=== PATIENT | female | born 1970 | race Caucasian/White ===

== ENCOUNTER 2022-05-04 08:31 | Observation (INO) ==
[2022-05-04 08:34] VITALS: BMI 31.3
--- NOTE | 2022-05-04 08:55 | ED.ABDFE ---
HPI Time Seen Time Seen by Provider: 05/04/22 08:53 PCP Primary Care Physician: BERNIE TATUM Complaint Chief Complaint:: PT. C/O ABDOMINAL PAIN, NAUSEA/VOMITING. ONSET THIS MORNING. Self Treatment fo Chief Complaint: CHEWABLE ROLAIDS COVID-19 Coronavirus risk:travel/contact w/high risk person: No Has patient experienced Coronavirus symptoms: No Source History Provided: Patient Mode of arrival Mode of Arrival: Ambulatory Timing Onset of Chief Complaint: 05/04/22 PMH PMH Past Medical History: No Past Surgical History: Yes Surgical History: Other Past Surgical History Comment: BREAST AUGMENTATION Family History History of Family Medical Conditions: No Social History Does patient currently use any type of tobacco product: No Have you used tobacco products in the last 12 months: No Type of Tobacco Use: None Does any household member use tobacco: No Alcohol Use: None Do you use any recreational Drugs:: No Lives With: Spouse Lives Where: Home Travel Risk Coronavirus risk:travel/contact w/high risk person: No Has patient experienced Coronavirus symptoms: No Infectious screening In the last 2 months have you had wt loss of >10#?: NO Have you had fever, night sweats or hemotysis?: No Have you traveled outside the country in the last 6 months?: No Isolation: Standard PE Vital Signs Vitals: Temperature 98.4 F Pulse Rate 63 Respiratory Rate 16 Blood Pressure 129/68 O2 Sat by Pulse Oximetry 98 COURSE Treatment Treatment: SEE ORDERS DONE WHILE PATIENT IS IN ER. Consultation Consultation Comments: CONSULT SURGEON CANDY PACKER. DR. PARK IN ER TO SEE PATIENT. HE WILL TAKE HER TO SURGERY TODAY. [facility] Labs Reviewed Laboratory Results Reviewed?: Yes Result Diagrams: 05/04/22 09:29 05/04/22 09:29 Laboratory: WBC 14.1 X10^3/uL (3.6-10.0) H 05/04/22 09:29 RBC 4.37 X10^6/uL (3.5-5.4) 05/04/22 09:29 Hgb 13.3 g/dL (12.0-16.0) 05/04/22 09:29 Hct 39.6 % (36.0-47.0) 05/04/22 09:29 MCV 90.6 fL (80.0-100.0) 05/04/22 09:29 MCH 30.5 pg (27.0-34.0) 05/04/22 09: MCHC 33.6 g/dL (33.0-35.0) 05/04/22 09: RDW 13.3 % (11.6-16.5) 05/04/22 09: Plt Count 297 X10^3/uL (150.0-450.0) 05/04/22 09: MPV 7.3 fL (7.4-11.0) L 05/04/22 09: Neut % (Auto) 87.3 % (42.0-75.0) H 05/04/22 09: Lymph % (Auto) 8.3 % (21.0-51.0) L 05/04/22: [place] % (Auto) 3.4 % (0.0-13.0) 05/04/22 09: Eos % (Auto) 0.6 % (0.9-2.9) L 05/04/22: Baso % (Auto) 0.4 % (0.2-1.0) 05/04/22 09: Neut # (Auto) 12.3 x10^3/uL (2.2-4.8) H 05/04/22: Lymph # (Auto) 1.2 X10^3/uL (1.3-2.9) L 05/04/22 09: Miller # (Auto) 0.5 x10^3/uL (0.3-0.8) 05/04/22 09: Eos # (Auto) 0.1 x10^3/uL (0.0-0.2) 05/04/22 09: Baso # (Auto) 0.1 X10^3/uL (0.0-0.1) 05/04/22 09: Absolute Nucleated RBC 0.0 /100WBC 05/04/22 09: Sodium 141 mmol/L (136-145) 05/04/22 09: Corrected Sodium TNP 05/04/22: Potassium 3.9 mmol/L (3.5-5.1) 05/04/22: Chloride 102 mmol/L (98-107) 05/04/22 09:29 Carbon Dioxide 32.0 mmol/L (21-32) 05/04/22 09:29 BUN 15 mg/dL (7-18) 05/04/22 09:29 Creatinine 1.03 mg/dL (0.55-1.02) H 05/04/22 09:29 Est GFR (MDRD) Af Amer > 60 (>60) 05/04/22 09:29 Est GFR (MDRD) Non-Af > 60 (>60) 05/04/22 09:29 Glucose 98 mg/dL (65-99) 05/04/22 09:29 Calcium 8.6 mg/dL (8.5-10.1) 05/04/22 09: Corrected Calcium TNP 05/04/22 09: Total Bilirubin 0.40 mg/dL (0.2-1.0) 05/04/22 09:29 AST 14 Units/L (15-37) L 05/04/22 09: ALT 18 Units/L (12-78) 05/04/22 09:29 Alkaline Phosphatase 85 Units/L (46-116) 05/04/22 09:29 Total Protein 7.4 g/dL (6.4-8.2) 05/04/22 09:29 Albumin 3.8 g/dL (3.4-5.0) 05/04/22 09:29 Globulin 3.6 g/dL (2.5-4.5) 05/04/22 09:29 Albumin/Globulin Ratio 1.1 Ratio (1.1-2.1) 05/04/22 09:29 Amylase 70 Units/L (25-115) 05/04/22 09:29 Lipase 91 Units/L (73-393) 05/04/22 09:29 Specimen Type Clean catch urine 05/04/22 10:20 Urine Color Yellow (YELLOW) 05/04/22 10:20 Urine Appearance Clear (CLEAR) 05/04/22 10:20 Urine pH 6.0 (5.0 - 8.0) 05/04/22 10:20 Ur Specific [place] 1.020 (1.000-1.030) 05/04/22 10:20 Urine Protein Negative (NEGATIVE) 05/04/22 10:20 Urine Glucose (UA) Negative (NEGATIVE) 05/04/22 10:20 Urine Ketones Negative (NEGATIVE) 05/04/22 10:20 Urine Blood 3+ (NEGATIVE) 05/04/22 10:20 Urine Nitrite Negative (NEGATIVE) 05/04/22 10:20 Urine Bilirubin Negative (NEGATIVE) 05/04/22 10:20 Urine Urobilinogen Normal (NORMAL) 05/04/22 10:20 Ur Leukocyte Esterase Negative (NEGATIVE) 05/04/22 10:20 Urine RBC 3-5 /HPF (0-3) A 05/04/22 10:20 Urine WBC None seen /HPF (0-5) 05/04/22 10:20 Ur Squamous Epith Cells Rare /HPF (NEGATIVE) 05/04/22 10:20 Amorphous Sediment Trace /HPF (NEGATIVE) 05/04/22 10:20 Urine Bacteria Negative /HPF (NEGATIVE) 05/04/22 10:20 Ur Culture Indicated? No/not indicated 05/04/22 10:20 EKG Rate: 73 [place]: Normal Rhythm: NSR Block: 1 Hypertrophy: None ST: Normal Opioid Opioid Risk Tool Age (Carlos box if 16-45): No History of Preadolescent Sexual Abuse: No Total: 0 Total Score Risk Category: Low Risk Copyright: Som CORNEJO predicting aberrant behaviors Discharge Plan Diagnosis Discharge Problem: Acute appendicitis, Abdominal pain Discharge Plan Patient Disposition: 01 HOME, SELF-CARE Condition: Stable Prescriptions: No Action diclofenac sodium 75 mg tablet,delayed release (DR/EC) 1 tab PO TID Health Concerns: Post Hospitalization: new medications and changes needed to prevent readmission or further decline. Pt educated and given instructions on all concerns. Plan of Treatment: Continue with present treatment and follow up plan. Pt is to keep follow up appointment as instructed and take medications as ordered. Follow ups/Referrals Follow ups/Referrals: MK ARAIZA [Primary Care Provider] - 3 days
[2022-05-04] MEDS ORDERED: NS 1,000 ML IV 1,000 ML ONE ×2 (09:10→15:25)
[2022-05-04] MEDS ORDERED: ZOFRAN INJ 4 MG VIAL IVP PRN ×2 (09:10→16:19)
[2022-05-04] MEDS ORDERED: NS 1,000 ML IV 1,000 ML IV ONE (09:10)
[2022-05-04] MEDS ORDERED: PEPCID 20 MG VIAL 20 MG in NS 50 ML IV 50 ML IV ONE (09:12)
[2022-05-04] MEDS ORDERED: ZOFRAN INJ 4 MG VIAL ONE ×2 (09:29→13:20)
[2022-05-04] MEDS ORDERED: NS 50 ML IV 50 ML IV ONE (09:29)
[2022-05-04] MEDS ORDERED: PEPCID 20 MG VIAL ONE ×2 (09:29→13:20)
[2022-05-04 09:47] LABS: BASOPHILS # (AUTO) 0.1 X10^3/uL (0.0-0.1); BASOPHILS % (AUTO) 0.4 % (0.2-1.0); EOSINOPHILS # (AUTO) 0.1 x10^3/uL (0.0-0.2); EOSINOPHILS % (AUTO) 0.6 % (0.9-2.9); HEMATOCRIT 39.6 % (36.0-47.0); HEMOGLOBIN 13.3 g/dL (12.0-16.0); LYMPHOCYTES # (AUTO) 1.2 X10^3/uL (1.3-2.9); LYMPHOCYTES % (AUTO) 8.3 % (21.0-51.0); MEAN CORPUSCULAR HEMOGLOBIN 30.5 pg (27.0-34.0); MEAN CORPUSCULAR HGB CONC 33.6 g/dL (33.0-35.0); MEAN CORPUSCULAR VOLUME 90.6 fL (80.0-100.0); MEAN PLATELET VOLUME 7.3 fL (7.4-11.0); MONOCYTES # (AUTO) 0.5 x10^3/uL (0.3-0.8); MONOCYTES % (AUTO) 3.4 % (0.0-13.0); NEUTROPHILS # (AUTO) 12.3 x10^3/uL (2.2-4.8); NEUTROPHILS % (AUTO) 87.3 % (42.0-75.0); RED BLOOD COUNT 4.37 X10^6/uL (3.5-5.4); RED CELL DISTRIBUTION WIDTH 13.3 % (11.6-16.5); WHITE BLOOD COUNT 14.1 X10^3/uL (3.6-10.0)
[2022-05-04 10:01] LABS: ALANINE AMINOTRANSFERASE 18 Units/L (12-78); ALBUMIN 3.8 g/dL (3.4-5.0); ALKALINE PHOSPHATASE 85 Units/L (46-116); AMYLASE 70 Units/L (25-115); ASPARTATE AMINO TRANSFERASE 14 Units/L (15-37); BLOOD UREA NITROGEN 15 mg/dL (7-18); CALCIUM 8.6 mg/dL (8.5-10.1); CHLORIDE 102 mmol/L (98-107); CREATININE 1.03 mg/dL (0.55-1.02); LIPASE 91 Units/L (73-393); SODIUM 141 mmol/L (136-145); TOTAL PROTEIN 7.4 g/dL (6.4-8.2); eGFR NON BLACK RACES > 60 (>60)
--- OUTSIDE RECORDS SUMMARY | 2022-05-04 10:33 | XMS | Continuity of Care Document ---
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 Pt has seen him and Case reviewed with [place] with Dr Davey and she is scheduled for excision tentatively 03-05-2021 at [facility].approx 8 mm rounded, raised, nevus the has appearance of a changing subaceous cyst or basal cell type lesion. She says it has been present 5 to 6 years but recently has increased in size and has at times draine d a clear serous liq uid. It has developed a lobulated appearance. No fever, chills, or weight loss, and no palpble regional lymph nodes. Status: Active Back pain (M54.9, 724.5) Comments: Pt wo zion like to be seen for back pain, neck pain, and right shoulder pain due to injury at work on 12/06/21. She was approved to be seen by workman's comp for a left arm injury. She reports that her left arm is not hurting or giving her any issues. She would like to wait and schedule a new visit once workman's comp approves her to be seen for back pain, neck pain, and right shoulder pain. We will attem pt to reach them and get approval and then schedule a new visit. Status: Active Basal cell carcinoma (BCC) of chest (C44.519, 173.51) Comments: RT side mandible . Status: Active Colicky RUQ abdominal pain (R10.11, 789.01) Comments: We will send for upper abd sonogram.Reports some crampy-type colic with discomfort in the right side and upper quadrant of the abdomen. Says she feels like she is distended like she has swallowed too much air. Status: Active Encounter for mammogram to establish baseline mammogram (Z12 .31, V76.12) Status: Active Hot flushes, perimenopausal (N95.1, 627.2) Comments: [facility]: add Clonidine 0.1 mg at HS for vasomotor sx's. Status: Active Low back pain with right-sided sciatica (M54.41, 724.3) Status: Active Low serum calcium (R79.89, 790.6) Status : Active Obesity with body mass index greater than 30 (E66.9, 278.00) Status: Active Right shoulder pain (M25.511, 719.41) Co mments: Reviewed x-rays with patient, no abnormalities noted.Due to continued pain, will refer to ortho for further evaluation and imagingReviewed plan of care with highway maintenance worker, Delano Calderon. Will tx with low dose Meloxicam. instruct ed on medication use and to avoid taking with other NSAIDS.These are old injuries that occurred on 12/06/20. Status: Active Skin lesion of face (L98.9, 709.9) Comme nts: basal cell carcinoma of skin face .R side, raised, scabbed Status: Active Work related injury (Y99.0, 959.9) Statu s: Active Medications Name Dates Details cloNIDine HCl 0.1 MG Oral Tablet 1 (one) Tablet Take one tab at HS for h ot flushes/vasomotor sx's for 30 days Quantity: 30 {Tablet} Refills: 0 Ordered:26-Nov-2020 Italia Low Start : 26-Nov-2020 End : 26-Dec-2020 Inactive Dicyclomine HCl 20 MG Oral Tablet 1 (one) Tablet TID before meals for stomach for 14 days Quantity: 40 {Tablet} Refills: 0 Ordered:20-Feb-2021 Shannon Fam NP Start : 20-Feb-2021 End : 06-Mar-2021 Inactive Diethylpropion HCl 25 MG Oral Tablet 1 (one) Tablet Take one tab daily before supper for 30 days Quantity: 30 {Tablet} Refills: 0 Ordered:26-Nov-2020 Italia Low Start : 26-Nov-2020 End : 26-Dec-2020 Inactive Meloxicam 7.5 MG Oral Tablet 1 (one) Tablet daily for 30 days Quantity: 30 {Tablet} Refills: 0 Ordered:06-Feb-2022 Arabella Yu NP Start : 06-Feb-2022 End : 08-Mar-2022 Inactive methylPREDNISolone 4 MG Oral Tablet Therapy Pack 1 (one) package use as directed per instructions in pack for 6 days Quantity: 1 {Packet} Refills: 0 Ordered:28-Jan-2022 Arabella Yu NP Start : 28-Jan-2022 End : 03-Feb-2022 Inactive Naproxen 500 MG Oral Tablet 1 (one) Tablet two times daily, as needed for 14 days Quantity: 28 {Tablet} Refills: 0 Ordered:28-Jan-2022 Zhanna Rolon Start : 28-Jan-2022 End : 11-Feb-2022 Inactive Comments:Medication taken as needed. Allergies and Adverse Reactions Name Dates Details No Known Drug Allergies (Allergy) Onset: 03-Dec-2020 Status : Active Procedures Procedure Dates Details EKG (80895) Date: 20-Feb-2021 Completed Comments: EKG out pt for c/o of upper abd pain and prior to surgery, please forward a copy of results to Dr Camacho ELECTROCARDIOGRAM, COMPLETE Date: 03-Dec-2020 Completed Nov-2020 (39231) Family History Unknown Family Member Name Dates Details Alcohol Abuse Status: Active Anemia Status: Active Cancer Comments: other Status: Active Completed Stroke Status: Active Heart disease in female family member before age 65 Status: Active Social History Name Dates Details Alcohol use: Moderate alcohol use. Drinks beer. Comments: 3-5 times/ month Status: Active Caffeine use: Tea. Comments: 5-6/day Status: Active Current tobacco use: Light tobacco smoke r. Smokes < 1 pack of cigarettes per day. Status: Active Exercise: Moderate. Comments: walking 5- 6 times per week Status: Active No drug use Status: Active Seat Belt Use: Never uses seat belts. St atus: Active Sun Exposure: Significant purposeful. St atus: Active Smoking Status Name Dates Details Smoker (finding) Vital Signs Date Test Result Details :55 Body temperature 98 f Comments: Metho d: Oral Heart Rate 80 /min Comments: Pattern: R egular Respiratory rate 20 /min Comments: Pattern: U nlabored O2 SAT 96 % Comments: Room air Systolic blood pressure 108 mm[Hg] Comments: Patien t Position: Sitting; Cuff Location: Left Arm; Cuff Size: Standard Diastolic blood pressure 72 mm[Hg] Comments: Patie nt Position: Sitting; Cuff Location: Left Arm; Cuff Size: Standard Weight 189.5 lb Body height 65 in Body mass index (BMI) [Ratio] 31.53 kg/m2 Body surface area Derived from formula 1.93 m2 :38 Body temperature 97.5 f Comments: Meth od: Oral Heart Rate 60 /min Comments: Pattern: R egular Respiratory rate 16 /min Comments: Pattern: U nlabored O2 SAT 95 % Comments: Room air Systolic blood pressure 113 mm[Hg] Comments: Patien t Position: Sitting; Cuff Location: Left Arm; Cuff Size: Standard Diastolic blood pressure 62 mm[Hg] Comments: Patie nt Position: Sitting; Cuff Location: Left Arm; Cuff Size: Standard Weight 190.375 lb Body height 65 in Body mass index (BMI) [Ratio] 31.68 kg/m2 Body surface area Derived from formula 1.94 m2 :40 Body temperature 98.3 f Comments: Meth od: Oral Heart Rate 72 /min Comments: Pattern: R egular Respiratory rate 20 /min Comments: Pattern: U nlabored O2 SAT 95 % Comments: Room air Systolic blood pressure 116 mm[Hg] Comments: Patien t Position: Sitting; Cuff Location: Left Arm; Cuff Size: Standard Diastolic blood pressure 78 mm[Hg] Comments: Patie nt Position: Sitting; Cuff Location: Left Arm; Cuff Size: Standard Weight 190.375 lb Body height 65 in Body mass index (BMI) [Ratio] 31.68 kg/m2 Body surface area Derived from formula 1.94 m2 :33 Body temperature 98 f Heart Rate 77 /min Comments: Pattern: R egular Respiratory rate 18 /min Comments: Pattern: U nlabored O2 SAT 96 % Comments: Room air Systolic blood pressure 110 mm[Hg] Comments: Patien t Position: Sitting; Cuff Location: Left Arm; Cuff Size: Standard Diastolic blood pressure 64 mm[Hg] Comments: Patie nt Position: Sitting; Cuff Location: Left Arm; Cuff Size: Standard Weight 192 lb Body height 65 in Body mass index (BMI) [Ratio] 31.95 kg/m2 Body surface area Derived from formula 1.94 m2 :53 Body temperature 97.6 f Comments: Meth od: Oral Heart Rate 78 /min Comments: Pattern: R egular Respiratory rate 18 /min Comments: Pattern: U nlabored O2 SAT 97 % Comments: Room air Systolic blood pressure 124 mm[Hg] Comments: Patien t Position: Sitting; Cuff Location: Left Arm; Cuff Size: Standard Diastolic blood pressure 79 mm[Hg] Comments: Patie nt Position: Sitting; Cuff Location: Left Arm; Cuff Size: Standard Weight 192 lb Body height 65 in Body mass index (BMI) [Ratio] 31.95 kg/m2 Body surface area Derived from formula 1.94 m2 :13 Body temperature 97.9 f Heart Rate 76 /min Comments: Pattern: R egular Respiratory rate 18 /min Comments: Pattern: U nlabored O2 SAT 98 % Comments: Room air Systolic blood pressure 102 mm[Hg] Comments: Patien t Position: Sitting; Cuff Location: Left Arm; Cuff Size: Standard Diastolic blood pressure 67 mm[Hg] Comments: Patie nt Position: Sitting; Cuff Location: Left Arm; Cuff Size: Standard Weight 192 lb Body height 65 in Body mass index (BMI) [Ratio] 31.95 kg/m2 Body surface area Derived from formula 1.94 m2 :52 Body temperature 98.2 f Comments: Metho d: Oral Heart Rate 82 /min Comments: Pattern: R egular Respiratory rate 18 /min Comments: Pattern: U nlabored O2 SAT 95 % Comments: Room air Systolic blood pressure 136 mm[Hg] Comments: Patien t Position: Sitting; Cuff Location: Left Arm; Cuff Size: Standard Diastolic blood pressure 83 mm[Hg] Comments: Patie nt Position: Sitting; Cuff Location: Left Arm; Cuff Size: Standard Weight 195 lb Body height 65 in Body mass index (BMI) [Ratio] 32.45 kg/m2 Body surface area Derived from formula 1.96 m2 :15 Body temperature 97.5 f Heart Rate 85 /min Comments: Pattern: R egular Respiratory rate 18 /min Comments: Pattern: U nlabored O2 SAT 99 % Comments: Room air Systolic blood pressure 114 mm[Hg] Comments: Patien t Position: Sitting; Cuff Location: Left Arm; Cuff Size: Standard Diastolic blood pressure 70 mm[Hg] Comments: Patie nt Position: Sitting; Cuff Location: Left Arm; Cuff Size: Standard Weight 195 lb Body height 65 in Body mass index (BMI) [Ratio] 32.45 kg/m2 Body surface area Derived from formula 1.96 m2 Results Date Description Value Details No Result Information Available Plan of Care Name Dates Details Instructions Follow up in 1 week Start: 29-Jan-2022 Instruction Type: Linda lundy Instructions for Treatment Indication: Right shoulder pain Low Back Pain Exercises *: back exercises Start: 29-Jan-2022 Instruction Type: Patient Education Indication: Low back pain with right-sided sciatica Follow up -Call or Make appt after diagn ostic tests to review results. for Upper Abd sonogram, EKG, MMG, and labs Start: 20-Feb-2021 Instruction Type: Provider Instructions for Treatment Indication: Colicky RUQ abdominal pain Breast Cancer: Early Detection: self-exam Start: Instruction Type: Patient Education Indication: Encounter for mammogram to establish baseline ma mmogram Breast Self-Exam *: gynecological health Start: 20-Feb-2021 Instruction Type: Patient Education Indication: Encounter for mammogram to establish baseline ma mmogram Mammogram *: breast Start: 20-Feb-2021 Instruction Type: P atient Education Indication: Encounter for mammogram to establish baseline ma mmogram [facility] *: mammogram Start: 21-Feb-20 Instruction Type: Patient Education Indication: Encounter for mammogram to establish baseline ma mmogram Gallstones *: gall bladder disease Start: 20-Feb-2021 Inst ruction Type: Patient Education Indication: Colicky RUQ abdominal pain Abdominal Pain, Etiology Unknown, Female Start: 20-Feb-2021 Instruction Type: Patient Education Indication: Colicky RUQ abdominal pain Smoking Counseling Education Start: 20-Feb-2021 Instructio n Type: Patient Education Indication: Atypical nevus of cheek Excision of a Skin Lesion: removal of skin lesion Start: Nov-2020 Instruction Type: Patient Education Indication: Skin lesion of face Smoking Counseling Education Start: 03-Dec-2020 Instructio n Type: Patient Education Indication: Skin lesion of face Follow up in 2 to 4 weeks or sooner if needed for med effects/efficacy Start: 26-Nov-2020 Instruction Type: Provider Instructions for Treatment Indication: Obesity with body mass index greater than 30 Follow up after consult Start: 26-Nov-2020 Instruction Typ e: Provider Instructions for Treatment Indication: Atypical nevus of cheek Hot Flashes: gynecological health Start: 26-Nov-2020 Instr uction Type: Patient Education Indication: Hot flushes, perimenopausal Weight Loss Diets *: overweight Start: 26-Nov-2020 Instruc tion Type: Patient Education Indication: Obesity with body mass index greater than 30 Skin Exam: abcd guidelines Start: 26-Nov-2020 Instruction Type: Patient Education Indication: Atypical nevus of cheek Skin Cancer: basal cell carcinoma Start: 26-Nov-2020 Instr uction Type: Patient Education Indication: Atypical nevus of cheek Planned Observations AIT Covid (Send out) ([id number])Indication: Skin lesion of face On: 4-Lse-189136:01 Request CBC w/differential ([id number])Indication: Colicky RUQ abdo amos pain On: 06-Pmy-007739:04 Request METABOLIC PANEL, COMPREHENSIVE ([id number])Indication: Coli cky RUQ abdominal pain On: 34-Cob-427470:03 Request Vitamin D 25 Hydroxy ([id number])Indication: Low serum calcium On : 03-Fpm-552299:02 Request [place] Virus/Covid-19 (U0001)Indication: Skin lesion o f face On: 9-Ppy-027073:05 Request CMP ([id number])Indication: Skin lesion of face On: 0-Lqk-485506: 05 Request CBC, PLATELETS & AUT DIFF ([id number])Indication: Skin lesi on of face On: 3-Thg-355530:05 Request LIPID PANEL ([id number])Indication: Atypical nevus of cheek On: 2 :07 Request THYROXINE FREEIndication: Atypical nevus of cheek On: : Request TSH (THYROID STIMULATING HORMONE)Indication: Atypical nevus of cheek On: :07 Request TT4 (THYROXINE TOTAL)Indication: Atypical nevus of cheek On: :07 Request CMP ([id number])Indication: Atypical nevus of cheek On: 27-Nov-19 2112:07 Request CBC, PLATELETS & AUT DIFF ([id number])Indication: Atypical nevus of cheek On: :07 Request Planned Procedures PATIENT SCREENED FOR TOBACCO USE AND On: 06-Feb-2022 Int ent IDENTIFIED A TOBACCO NON-USER (G9903)By: Zhanna Rolon SCREENING FOR TOBACCO USE (4004F)By: On: 06-Feb-2022 Int ent Zhanna Rolon X-RAY EXAM OF LOWER SPINE ([id number])By: On: 28-Jan-2022 Int ent Arabella Yu NP COMPLETE X-RAY SERIES OF RIGHT On: 28-Jan-2022 Intent SHOULDER ([id number])By: Arabella Yu NP PATIENT SCREENED FOR TOBACCO USE AND On: 28-Jan-2022 Int ent IDENTIFIED A TOBACCO NON-USER (G9903)By: Zhanna Rolon SCREENING FOR TOBACCO USE (4004F)By: On: 28-Jan-2022 Int Zhanna Crawford PATIENT SCREENED FOR TOBACCO USE AND On: 16-Sep-2021 Int ent IDENTIFIED A TOBACCO USER (G9902)By: Antolin Camacho SCREENING FOR TOBACCO USE (4004F)By: On: 16-Sep-2021 Int ent Antolin Camacho PATIENT IDENTIFIED A TOBACCO USER On: 17-Apr-2021 Int ent RECEIVED TOBACCO CESSATION INTERVENTION (COUNSELING AND/OR PHARMACOTHERAPY) (G9906)By: Antolin Camacho PATIENT SCREENED FOR TOBACCO USE AND On: 17-Apr-2021 Int ent IDENTIFIED A TOBACCO USER (G9902)By: Antolin Camacho SCREENING FOR TOBACCO USE (4004F)By: On: 17-Apr-2021 Int ent Antolin Camacho SMOKING CESSATION COUNSELING FOR 3 On: 20-Feb-2021 Inten t TO 10 MINUTES ([id number])By: Shima Mulligan MAMMOGRAM BREAST BILATERAL SCREENING On: 20-Feb-2021 Int ent DIGITAL ([id number])By: Shannon Fam NP Comm ents: Pt has 100 % indigent assistance / May verify with Financial dept if nec. ULTRASOUND OF ABDOMEN ([id number])By: Sarwat On: 20-Feb-2021 Int ent GAS OPERATIONS ANALYSTShannon Comments: Pt has 100 % indigent assistance CHEST XRAY, PA & LATERAL ([id number])By: On: 03-Dec-2020 Inte nt Antolin Camacho EXCISION OF BENIGN SKIN LESION On: 03-Dec-2020 Intent (EXCLUDING SKIN TAGS) OF FACE, 2.1 TO 2.5CM ([id number])By: Antolin Camacho Instructions Name Dates Details Verified Opioid Agreement Start: 06-Feb-2022 Instruction T ype: Provider Instructions for Treatment Indication: Low back pain with right-sided sciatica Follow Health Start: 06-Feb-2022 Instruction Type: P atient Education Indication: Low back pain with right-sided sciatica How to Access Health Information Online using Patient Portal and [employer] Apps Start: 06-Feb-2022 Instruction Type: Patient Education Indication: Low back pain with right-sided sciatica Verified Opioid Agreement Start: 28-Jan-2022 Instruction T ype: Provider Instructions for Treatment Indication: Right shoulder pain Follow Health Start: 28-Jan-2022 Instruction Type: P atient Education Indication: Right shoulder pain How to Access Health Information Online using Patient Portal and [employer] Apps Start: 28-Jan-2022 Instruction Type: Patient Education Indication: Right shoulder pain Verified Opioid Agreement Start: 16-Sep-2021 Instruction T ype: Provider Instructions for Treatment Indication: Skin lesion of face Follow Health Start: 16-Sep-2021 Instruction Type: P atient Education Indication: Skin lesion of face How to Access Health Information Online using Patient Portal and [employer] Apps Start: 16-Sep-2021 Instruction Type: Patient Education Indication: Skin lesion of face Verified Opioid Agreement Start: 17-Apr-2021 Instruction T ype: Provider Instructions for Treatment Indication: Skin lesion of face Follow [facility] Start: 17-Apr-2021 Instruction Type: P atient Education Indication: Skin lesion of face How to Access Health Information Online using Patient Portal and [employer] Apps Start: 17-Apr-2021 Instruction Type: Patient Education Indication: Skin lesion of face Verified Opioid Agreement Start: 20-Feb-2021 Instruction T ype: Provider Instructions for Treatment Indication: Atypical nevus of cheek Follow [facility] Start: 20-Feb-2021 Instruction Type: P atient Education Indication: Atypical nevus of cheek How to Access Health Information Online using Patient Portal and [employer] Apps Start: 20-Feb-2021 Instruction Type: Patient Education Indication: Atypical nevus of cheek Verified Opioid Agreement Start: 03-Dec-2020 Instruction T ype: Provider Instructions for Treatment Indication: Skin lesion of face Follow [facility] Start: 03-Dec-2020 Instruction Type: P atient Education Indication: Skin lesion of face How to Access Health Information Online using Patient Portal and [employer] Apps Start: 03-Dec-2020 Instruction Type: Patient Education Indication: Skin lesion of face Encounters Review On: 04-May-2022 10:28 [facility] Office Visit On: 06-Feb-2022 16:00 Encounter Reason: Follow Up - Patient is here today to follow up on x-ray results. Pt reports she is still having pain to lower back and right shoulder. Reports she completed her steroids, but it not help. Reports her sy End: 07-Feb-2022 11:08 mptoms are the same as last visit, and h ave not worsened or improved. Denies any new symptoms. Denies loss of bowel/bladder function or numbness/tingling to extremities. Reports she also has occasional burning pain and feels like she has a kn ot to her right forearm like it is bruised. She reports during the injury her right forearm was against the ice bucket when she fell and was bruised afterwards. Encounter Diagnosis: Right shoulder pain, Low back pain with right-sided sciatica [facility] Office Visit On: 28-Jan-2022 16:30 Encounter Reason: Arm pain - Presents fo r c/o lower back pain and right shoulder/arm pain from a work related injury that occurred on 12/06/21 in [place]. Reports she was bent over with her right arm in an ice chest and sh End: 29-Jan-2022 12:15 e slipped in water and landed on her kathleen k. She reports afterwards she had bruising to BL arms. She was never seen until now for this injury. Reports she was able to get up immediately after, and the lv n worsened over time. Reports she had mi d lower back pain that radiates down right leg. She reports it is worse with bending, twisting, and certain movements. She reports sometimes it is a sharp, stabbi ng pain and other times it is an aching pain like when she is laying in bed. Denies any loss of bowel/bladder function. Reports she also has pain to right shoulder blade at times. She reports it occurs with certain movements and radiates down right arm. She is not sure what movements cause the pain, not until it occurs. Reports when it occurs she has tingling down right arm. Denies pain at rest. Repor ts she also has some burning and a knot to right forearm at times where she had bruising after the accident. Reports she has tried heating pad occasionally for her back and helped a little bit. Reports the pain in her back can be severe like 10/10 when it occurs with certain movements. Denies any health problems or medication use. Encounter Diagnosis: Right shoulder pain, Low back pain with right-sided sciatica, Work related injury [facility] No Charge Visit On: 22-Jan-2022 16:30 Encounter Reason: Back pain - The onset of the back pain has been sudden. Patient is here today with complaints of back pain. Pt report she slipped and fell at work on 12/06/21. She c/o back pain, neck pain, and right shoulder pain. End: 23-Jan-2022 10:36 Encounter Diagnosis: Back pain [facility] Office Visit On: 16-Sep-2021 15:15 Encounter Diagnosis: Skin lesion of face End: 022 15:41 [facility] General Surgery Office Visit On: 17-Apr-2021 10:55 Encounter Reason: Follow Up - Patient is here as f/u s/p skin lesion removal. Patient states she's doing well. Voices no complaints/concerns.Encounter Diagnosis: Skin lesion of face, Basal cell carcinoma (BCC) of chest End: 17-Apr-2021 12:12 [facility] General Surgery Nurse Ordered Procedures/Labs On: 31-Mar-2021 9:58 Encounter Diagnosis: Skin lesion of face End: 31-Mar-20 10:01 [facility] Office Visit On: 20-Feb-2021 9:00 Encounter Reason: Skin Lesion, Facial - Symptoms include bleeding lesion. The condition involves a single lesion. The patient describes the lesion(s) as nodular. Onset was year(s) ago. Note for "Facial skin lesion": Pt i End: 20-Feb-2021 19:23 s here today for a follow to discuss her skin lesion on her face. She hasn't been able to have it removed due to Covid at the hospital. She is waiting on them to give her a call for the appt. Pt is not allergic to any medications., Abdominal pain - The abdominal pain has been occurring in a persistent pattern for weeks. The abdominal pain is described as a mild colicky. The abdominal pain is described as being located in the upper abdomen. The abdominal pain does not ra diate. The symptoms have no aggravating factors. The symptoms have no relieving factors. The symptoms have been associated with abdominal distention and heartburn , while the symptoms have not been assoc iated with amenorrhea, anorexia, bloody stools, chest pain, dark urine, diarrhea, fever, jaundice or nausea. Note for "Abdominal pain": Pt is here today with comp laints of having abdominal pain one time . It happened about 2 weeks ago. Pt states she felt like she had swallowed air and the feeling was weird. She hasn't had any problem since then. Pt has no other complaints.Encounter Diagnosis: Atypical nevus of cheek, Colicky RUQ abd ominal pain, Encounter for mammogram to establish baseline mammogram, Low serum calcium [facility] Office Visit On: 03-Dec-2020 16:51 Encounter Reason: Skin Lesion, Facial - Symptoms include growing lesion. The condition involves a single lesion. Patient states the area herndon.Encounter Diagnosis: Skin lesion of face End: 03-Dec-2020 17:50 [facility] General Surgery Office Visit On: 26-Nov-2020 11:03 Encounter Reason: Skin Lesion, Facial - Symptoms include growing lesion, non- healing lesion and redness around lesion, while symptoms do not include bleeding lesion or lesion itching. The condition involves a single lesi End: 26-Nov-2020 13:05 on. Lesion(s) are located on the right m andibular area. The patient describes the lesion(s) as draining and scaling. Onset was gradual (started like a pimple) 5 year(s) ago. The symptoms occur intermitt ently. The patient describes this as mod erate in severity and worsening (increasing in size). Symptoms are exacerbated by physical exertion (if something hits it, it gets worse). Associated symptoms inc lude weight gain (weight has been fluctu ating and she thinks some of weight gain is hormonally triggered). Presenting symptoms included non-healing facial lesion. Note for "Facial skin lesion": Pt is in office today for a skin lesion of the f tommie on the R mandibular side of the face. States it has been there for 5-6 years, started off a pimple, pt states she popped it and it has just continued to grow back for the past 5-6 years. Lesion look s to be filled with liquid, raised slightly off the skin and scabbed over. A little bigger than a dime. Slightly erythematous. Pt states she tried to freeze it of f about 3-4 months ago, didn't work, les ion got bigger. Drainage is clear in color, no smell. Gives a burning sensation, no pain. Denies fever. Pt does have family history of skin cancer: father- 6 year s ago, paternal grandmother-right prior to father: per pt.Pt has NKDA.Encounter Diagnosis: Skin lesion of face, Atypical nevus of cheek, Hot flushes, perimenopausal, Obesity with body mass index greater than 30 [facility] Payers Ashish Neves; a guarantor
[2022-05-04 10:46] LABS: BILIRUBIN,URINE NEGATIVE (NEGATIVE); BLOOD/HEMOGLOBIN,URINE 3+ (NEGATIVE); GLUCOSE, URINE NEGATIVE (NEGATIVE); KETONES,URINE NEGATIVE (NEGATIVE); LEUKOCYTE ESTERASE ,URINE NEGATIVE (NEGATIVE); NITRITES,URINE NEGATIVE (NEGATIVE); PROTEIN,URINE NEGATIVE (NEGATIVE); UROBILINOGEN,URINE NORMAL (NORMAL)
[2022-05-04 10:52] LABS: APPEARANCE,URINE CLEAR (CLEAR); COLOR,URINE YELLOW (YELLOW)
[2022-05-04] MEDS ORDERED: TORADOL 30 MG VIAL IM ONE (10:57)
[2022-05-04] MEDS ORDERED: TORADOL 30 MG VIAL ONE ×3 (11:00→13:20)
[2022-05-04] MEDS ORDERED: TORADOL 30 MG VIAL IVP ONE (11:04)
[2022-05-04 11:05] LABS: BACTERIA,URINE NEGATIVE /HPF (NEGATIVE); SQUAMOUS EPITHELIAL CELL,UR RARE /HPF (NEGATIVE)
[2022-05-04] MEDS ORDERED: COMPAZINE INJ IVP ONE (11:05)
[2022-05-04] MEDS ORDERED: COMPAZINE INJ ONE (11:07)
--- NOTE | 2022-05-04 12:16 | CT ---
HISTORYRT SIDE ABD PAINSTUDYABDOMEN/PELVIS W/O CONCOMPARISONNone.TECHNIQUEMultiple axial images of the abdomen and pelvis were obtained from the lung bases to the pubic symphysis without the administration of IV contrast. Dose reduction techniques including Automated Exposure Control (AEC) and adjustment of mA and kV were utilized.FINDINGSLack of contrast limits evaluation.Partially visualized right breast implant. The heart is normal in size. The lung bases are clear. The liver, gallbladder, spleen, pancreas, and adrenal glands have a benign noncontrast appearance. Left kidney has a benign noncontrast appearance. 3 mm right nephrolithiasis. No hydronephrosis. The urinary bladder appears benign. The uterus is present. No large abnormal pelvic mass. [id number] amount of stool in the colon. The appendix is dilated measuring up to 13 mm medial-lateral image 52 series 3. There are appendicoliths measuring 9 mm at the base of the appendix image 56 series 3. Negative for bowel obstruction. Non-atherosclerotic normal caliber abdominal aorta. No pathologic adenopathy. No free air, free fluid or collection. No acute osseous abnormality.IMPRESSIONCombination of dilated appendix with appendicoliths is suspicious for appendicitis in the appropriate clinical setting. No free air or abscess.Electronically signed by: Keith Marquez (May 04, 2022 12:14:56)
[2022-05-04] MEDS ORDERED: ANCEF VIAL 1 GRAM IVP ONE (12:26)
[2022-05-04] MEDS ORDERED: ANCEF VIAL 1 GRAM ONE ×2 (12:29→14:57)
[2022-05-04] MEDS ORDERED: LEVAQUIN PREMIX IV 500 MG 500 MG/100 ML BAG IV ONE ×2 (13:03→13:17)
--- NOTE | 2022-05-04 13:08 | EKG ---
Test Reason : PREOP Blood Pressure : */* mmHG Vent. Rate : 73 BPM Atrial Rate : 73 BPM P-R Int : 218 ms QRS Dur : 82 ms QT Int : 414 ms P-R-T Axes : 57 17 47 degrees QTc Int : 456 ms Sinus rhythm with 1st degree AV block Otherwise normal ECG No previous ECGs available Confirmed by Anthony Arroyo ([id number]) on 05/05/2022 8:13:28 AM Referred By: Confirmed By: Anthony Arroyo
[2022-05-04] MEDS ORDERED: LR 1,000 ML IV 1,000 ML IV ONE (13:11)
[2022-05-04] MEDS ORDERED: ZEMURON 100 MG VIAL ONE (13:20)
[2022-05-04] MEDS ORDERED: DIPRIVAN VIAL 20 ML ONE (13:20)
[2022-05-04] MEDS ORDERED: DECADRON INJ ONE (13:20)
[2022-05-04] MEDS ORDERED: ROBINUL ONE (13:20)
[2022-05-04] MEDS ORDERED: OFIRMEV IV 1000 MG VIAL 1,000 MG/100 ML VIAL IV ONE (13:20)
[2022-05-04] MEDS ORDERED: XYLOCAINE 2 % (PLAIN) ONE (13:20)
[2022-05-04] MEDS ORDERED: PRECEDEX INJ VIAL IVP ONE (13:20)
[2022-05-04] MEDS ORDERED: BRIDION ONE (13:20)
[2022-05-04] MEDS ORDERED: VERSED ONE (13:21)
[2022-05-04] MEDS ORDERED: FENTANYL VIAL INJ 100 mcg ONE (13:21)
[2022-05-04] MEDS ORDERED: BACTROBAN TOPICAL OINT ONE (13:32)
[2022-05-04] MEDS ORDERED: LR 1,000 ML IV 1,000 ML IV SCH (14:00)
--- NOTE | 2022-05-04 14:14 | RAD ---
HISTORYPRE OP - APPEY TUBAL, BREAST IMPLANTS,STUDYCHEST, 1 VIEWCOMPARISONNovember 2020.FINDINGSThe trachea is midline. The cardiac silhouette is unremarkable. The lungs are clear without focal infiltrate or effusion. The bony thorax is unremarkable.IMPRESSIONNo acute cardiopulmonary findings .Electronically signed by: TEJAS SUAREZ III (May 04, 2022 14:13:31)
[2022-05-04] MEDS ORDERED: NS 100 ML IV 100 ML ONE (14:57)
[2022-05-04] MEDS ORDERED: STERILE WATER IRRIGATION IR ONE (15:20)
[2022-05-04] MEDS ORDERED: ULTANE GAS IN ONE (15:28)
[2022-05-04] MEDS ORDERED: KETAMINE HCL ONE (15:28)
[2022-05-04] MEDS ORDERED: LACRI-LUBE S.O.P. ONE (15:32)
[2022-05-04] MEDS ORDERED: EPHEDRINE SULFATE INJ ONE (15:42)
[2022-05-04] MEDS ORDERED: DILAUDID INJ IVP PRN ×2 (16:17→16:20)
[2022-05-04] MEDS ORDERED: BENADRYL INJ 50 MG VIAL IVP PRN (16:20)
[2022-05-04] MEDS ORDERED: BARHEMSYS INJ IVP PRN (16:20)
[2022-05-04] MEDS: D5 1/2 NS 1,000 ML 1,000 ML IV SCH (17:15)
[2022-05-04] MEDS: ZOSYN VIAL 3.375 GRAMS 3.375 G in NS 100 ML IV 100 ML IV SCH ×2 (17:23→22:27)
[2022-05-05] MEDS: D5 1/2 NS 1,000 ML 1,000 ML IV SCH (05:06)
[2022-05-05] MEDS: ZOSYN VIAL 3.375 GRAMS 3.375 G in NS 100 ML IV 100 ML IV SCH (05:06)
[2022-05-05 06:03] LABS: BASOPHILS % (AUTO) 0 % (0.2-1.0); HEMATOCRIT 35.8 % (36.0-47.0); HEMOGLOBIN 12.2 g/dL (12.0-16.0); LYMPHOCYTES # (AUTO) 0.8 X10^3/uL (1.3-2.9); LYMPHOCYTES % (AUTO) 6.2 % (21.0-51.0); MEAN CORPUSCULAR HEMOGLOBIN 30.9 pg (27.0-34.0); MEAN CORPUSCULAR VOLUME 90.8 fL (80.0-100.0); MEAN PLATELET VOLUME 7.3 fL (7.4-11.0); MONOCYTES # (AUTO) 0.5 x10^3/uL (0.3-0.8); MONOCYTES % (AUTO) 4.1 % (0.0-13.0); NEUTROPHILS # (AUTO) 11.1 x10^3/uL (2.2-4.8); NEUTROPHILS % (AUTO) 89.7 % (42.0-75.0); RED BLOOD COUNT 3.94 X10^6/uL (3.5-5.4); RED CELL DISTRIBUTION WIDTH 13.2 % (11.6-16.5); WHITE BLOOD COUNT 12.3 X10^3/uL (3.6-10.0)
[2022-05-05 06:12] LABS: ALANINE AMINOTRANSFERASE 14 Units/L (12-78); ALBUMIN 2.8 g/dL (3.4-5.0); ALKALINE PHOSPHATASE 73 Units/L (46-116); ASPARTATE AMINO TRANSFERASE 10 Units/L (15-37); BLOOD UREA NITROGEN 14 mg/dL (7-18); CARBON DIOXIDE 28.3 mmol/L (21-32); CHLORIDE 104 mmol/L (98-107); COR NA(FOR HYPERGLY) 141 mmol/L (136-145); CREATININE 1.08 mg/dL (0.55-1.02); SODIUM 139 mmol/L (136-145); TOTAL PROTEIN 6.2 g/dL (6.4-8.2); eGFR NON BLACK RACES 57 (>60)
[2022-05-05 08:11] VITALS: BP 109/62
== END 2022-05-05 11:40 | disposition home or self-care (01) ==
LOC: ER 08:31 → MED/SURG 13:00 → SURG1 13:00 → MED/SURG 16:41
PROVIDERS: ADMIT Surgery; ATTEND Surgery
PROC: APPYLAP (ICD-10-PCS; 2022-05-04 16:30)
DX: R11.2 Nausea with vomiting, unspecified; K35.890 Other acute appendicitis without perforation or gangrene; R10.84 Generalized abdominal pain